=== PATIENT | male | born 2000 | race Caucasian/White ===

== ENCOUNTER 2022-04-08 14:13 | Emergency (ER) | payer OTHER, SELFPAY ==
[2022-04-08 14:24] VITALS: BP 125/67; PULSE 93; RESP 16; TEMP 37.2; O2SAT 100
--- NOTE | 2022-04-08 14:26 | ED.MALEGU ---
HPI - Male Genitourinary General Chief complaint: Urogenital-Male Stated complaint: Poss UTI Time Seen by Provider: 04/08/22 14:26 Source: patient, family and RN notes reviewed History of Present Illness HPI Narrative: Patient is a 21-year-old male who presents to the Urgent Care with his mother with complaints of a possible UTI. Patient does have Asperger's and muscular dystrophy however does answer some questions. Mother states that he had decreased urinary output starting yesterday and has been complaining of pain with urination today with a scant blood in the urine. Mother states he has never had a UTI in the past. Denies any history of kidney stones. Mother states that she has tried to push fluids as well as cranberry juice. Patient/ mother denies of any fever, nausea or vomiting. Denies abdominal pain. No other acute complaints. No acute distress noted. Mother aware of the plan of care. Some parts of this dictation were generated by voice recognition software and may contain typographical and/or grammatical inaccuracies. Related Data Allergies Allergy/AdvReac Type Severity Reaction Status Date / Time No Known Allergies Allergy Verified 04/08/22 14:47 Review of Systems Review of Systems: CONSTITUTIONAL: Denies fever, chills, or sweats. EYES: Denies visual changes, redness, or discharge. ENT: Denies rhinorrhea, congestion, sore throat, or otalgia. CARDIOVASCULAR: Denies chest pain, palpitations, or edema. RESPIRATORY: Denies cough or dyspnea. GASTROINTESTINAL: Denies abdominal pain, nausea, vomiting, or diarrhea. GENITOURINARY: Reports of dysuria and decreased urinary output SKIN: Denies rash or itching. MUSCULOSKELETAL: Denies back pain, joint pain, or myalgia. NEUROLOGIC: Denies headache, numbness, or weakness. All other systems reviewed are negative, except as documented in HPI. PMFSH Comments At the time of my signature, I reviewed and agree with the nursing past medical, surgical, social, and family history. There is no relevant family history pertinent to the patient complaint. Exam Narrative: GENERAL: This is a well-nourished, well-developed patient, in no apparent distress. HEAD: normocephalic, atraumatic. EYES: PERRL. Sclera clear/white. Vision is grossly intact. EARS: External ears normal NOSE: External nose normal with no obvious nasal discharge, nares without redness, no rhinorrhea. THROAT: Mucous membranes moist, CARDIOVASCULAR: Regular rate and rhythm without murmurs, gallops, or rubs. RESPIRATORY: Clear to auscultation. Breath sounds equal bilaterally. No wheezes, rales, or rhonchi. GASTROINTESTINAL: Abdomen soft, non-tender, nondistended. Bowel sounds are active. No guarding. SKIN: warm, intact with no suspicious lesions or rash, good texture and turgor. NEURO: awake, alert, and oriented to person, place and time. There were no obvious focal neurologic abnormalities. EXTREMITIES: No clubbing, cyanosis, or edema. BACK: mild bilateral cervical tenderness Course Course Level of Care: Express Care Visit Vital Signs Vital signs: Vital Signs Temperature 98.9 F 04/08/22 14:24 Pulse Rate 93 04/08/22 14:24 Respiratory Rate 16 04/08/22 14:24 Blood Pressure 125/67 04/08/22 14:24 Pulse Oximetry 100 04/08/22 14:24 Oxygen Delivery Room Air 04/08/22 14:24 Temperature 98.9 F 04/08/22 14:24 Pulse Rate 93 04/08/22 14:24 Respiratory Rate 16 04/08/22 14:24 Blood Pressure 125/67 04/08/22 14:24 Pulse Oximetry 100 04/08/22 14:24 Oxygen Delivery Room Air 04/08/22 14:24 reviewed MDM - Male Genitourinary MDM Narrative Medical decision making narrative: reviewed lab results with patient and mother. Aware that patient's urinalysis is indicative of a urinary tract infection. Advised the patient to complete the oral antibiotic regimen as prescribed. Be sure to eat and drink with medication. We will culture the urine and call if medication changes necess
== END 2022-04-08 15:00 | disposition home or self-care (01) ==
PROVIDERS: Emergency Provider Nurse Practitioner Family
DX: N39.0 Urinary tract infection, site not specified (principal); F84.5 Asperger's syndrome; G71.00 Muscular dystrophy, unspecified
CPT/HCPCS: 81003; 87077; 87086; 87186; 99203; G0463